=== PATIENT | female | born 1980 | race Caucasian/White ===

== ENCOUNTER 2023-01-21 16:03 | Emergency (ER) | payer MEDICAID, OTHER ==
[~2023-01-21] VITALS: Ht 162.6 cm; Wt 65.8 kg
--- NOTE | 2023-01-21 16:05 | NUR ---
Pt brought by self, ambulatory, A&Ox4, pt presents to ER with severe pascale breast pain /discharge after having surgery december for breast lyft and breast implants removal, pt c/o fever prior arrival, current temp 98.3, VSS, respirations even and unlabored.
[2023-01-21 16:21] VITALS: BP_SYST 136; PULSE 85; RESP 20; TEMP 98.3; O2SAT 98
--- NOTE | 2023-01-21 16:25 | NUR ---
Dr Morrissey evaluating patient in the triage room
[2023-01-21 16:53] LABS: BASOPHILS % (AUTO) 0.4 % (0.0-2.0); EOSINOPHILS # (AUTO) 0.1 K/uL (0.0-0.4); EOSINOPHILS % (AUTO) 1.5 % (0.0-4.0); HEMATOCRIT 39.2 % (36-48); HEMOGLOBIN 13.2 g/dL (12.0-16.0); LYMPHOCYTES # (AUTO) 1.9 K/uL (1.0-5.5); LYMPHOCYTES % (AUTO) 20.7 % (20.5-51.5); MEAN CORPUSCULAR HEMOGLOBIN 31 pg (27-31); MEAN CORPUSCULAR HGB CONC 34 % (32-36); MEAN CORPUSCULAR VOLUME 93 fL (79.0-98.0); MONOCYTES # (AUTO) 0.5 K/uL (0.0-1.0); MONOCYTES % (AUTO) 5.6 % (1.7-9.3); NEUTROPHILS # (AUTO) 6.8 K/uL (1.8-7.7); NEUTROPHILS % (AUTO) 71.8 % (40.0-70.0); PLATELET COUNT (AUTO) 250 K/uL (130-430); RED BLOOD CELL COUNT(AUTO) 4.22 MIL/uL (4.2-6.2); RED CELL DISTRIBUTION WIDTH 11.8 % (9.0-15.0); WHITE BLOOD COUNT (AUTO) 9.4 K/uL (4.8-10.8)
[2023-01-21 16:59] LABS: CALCIUM 8.9 mg/dL (8.4-11.0); CREATININE 0.79 mg/dL (0.55-1.30)
[2023-01-21 17:04] LABS: ALBUMIN 4.2 g/dL (3.4-4.8); TOTAL BILIRUBIN 0.5 mg/dL (0.0-1.0)
--- NOTE | 2023-01-21 19:01 | NUR ---
CALL TO WAITING ROOM, NO ANSWER
[2023-01-21] MEDS ORDERED: KETOROLAC TROMETHAMINE 30 MG VIAL IM ONE (23:00)
[2023-01-21] MEDS ORDERED: CEPH-548 PO (23:02)
[2023-01-21] MEDS ORDERED: cephALEXin 500 MG CAPSULE ONE (23:15)
[2023-01-21] MEDS ORDERED: CEPHALEXIN 125 MG/5 ML, 100 ML BTL PO ONE (23:15)
[2023-01-21] MEDS ORDERED: cephALEXin 500 MG CAPSULE PO ONE (23:15)
[2023-01-21 23:20] VITALS: BP_SYST 116; PULSE 79; RESP 20; TEMP 97.9; O2SAT 95
--- NOTE | 2023-01-21 23:20 | NUR ---
Patient given written and verbal discharge instructions and verbalizes understanding. ER DR BARBOUR discussed with patient the results and treatment provided. Patient in stable condition. ID arm band removed. Rx of KEFLEX given. Patient educated on pain management and to follow up with PMD. Pain Scale 2/10. Opportunity for questions provided and answered. Medication side effect fact sheet provided.
== END 2023-01-21 23:20 | disposition home or self-care (01) ==
LOC: SED 16:03
DX: N61.0 Mastitis without abscess (principal); R50.9 Fever, unspecified; Z88.0 Allergy status to penicillin; Z91.040 Latex allergy status; Z79.899 Other long term (current) drug therapy
CPT/HCPCS: 99285; 71045; 80053; 85025; 36415; 76641; 96372; J1885